=== PATIENT | female | born 1960 | race Caucasian/White ===

== ENCOUNTER 2020-03-29 13:09 | Outpatient (CLI) | payer BC, SELFPAY ==
--- NOTE | 2020-03-29 13:17 | CT_ITS ---
WS: [id number] CT NECK TECHNIQUE: Contrast-enhanced CT of the neck with coronal and sagittal reformatted images. CLINICAL INFORMATION: left neck lymphadenopathy COMPARISON: None. DLP: 1572.[address] scans at [facility] use at least one of these dose optimization techniques: automat ed exposure control; mA and/or kV adjustment per patient size (includes targeted exams where dose is matched to clinical indication); or iterative reconstruction. FINDINGS: Some images are degraded due to dental beam hardening artifact. Parotid glands are normal. Enhancing nodule at the inferior aspect of the left submandibular gland me asuring 1.2 x 0.8 cm. This appears contiguous with the submandibular gland. Right submandibular gland is normal. Normal tongue base. Normal parapharyngeal fat. No evidence of supraglottic or glottic mas s. Normal vallecula and piriform sinuses. Subglottic airway is normal. Lung apices are well aerated. Normal visualized thyroid gland. Partially visualized intracranial contents unremarkable. Mastoid air cells and paranasal sinuses are well aera francesca. . IMPRESSION: 1. 1.2 x 0.8 cm enhancing well-circumscribed nodule or lymph node abutting the inferior aspect of th e submandibular gland. This can be further evaluated with ultrasound. Some images are degraded due to dental beam hardening artifact. 2. No cervical lymphadenopathy. 3. Normal thyroid gland. 4. No evidence of supraglottic or glottic mass. 5. Paranasal sinuses and mastoid air cells are well aerated.
[2020-03-29] MEDS: iohexol 300 mg/mL 100 mL Btl IV (13:31)
== END 2020-03-29 13:10 | disposition home or self-care (01) ==
LOC: RADWPI 13:15
PROVIDERS: PCP Family Medicine; Visit Provider Family Medicine
DX: R59.0 Localized enlarged lymph nodes (principal)
CPT/HCPCS: 70491; Q9967

== ENCOUNTER → 2020-04-06 08:43 | Outpatient (BNVA) | payer BC, SELFPAY | PROVIDERS: PCP Family Medicine; Visit Provider Family Medicine | DX: E78.2 Mixed hyperlipidemia (principal); E03.9 Hypothyroidism, unspecified; Z13.6 Encounter for screening for cardiovascular disorders; Z01.419 Encounter for gynecological examination (general) (routine) without abnormal findings; N63.25 Unspecified lump in the left breast, overlapping quadrants; F41.9 Anxiety disorder, unspecified; F32.9 Major depressive disorder, single episode, unspecified | CPT/HCPCS: 80053; 80061; 84443; 85025; 88175 ==

== ENCOUNTER 2020-04-10 10:56 | Outpatient (CLI) | payer BC, SELFPAY ==
--- NOTE | 2020-04-10 11:00 | US_ITS ---
WS: [id number] ULTRASOUND SOFT TISSUES LEFT neck. HISTORY: LYMPHADENOPATHY NECK - RECENT CT SCAN COMPARISON: Neck CT 03/29/2020 TECHNIQUE: 2-D and color Doppler imaging is submitted. Ultrasound performed of the LEFT submandibular region. This is in the area of interest. There are sev eral small benign-appearing lymph nodes noted. These lymph nodes have normal fatty rosy. No enlargeme nt. Normal ovoid shape. US/US soft tissue head neck [id number] IMPRESSION: No abnormal lymphadenopathy in the LEFT neck.
== END 2020-04-10 10:57 | disposition home or self-care (01) ==
LOC: US 10:59
PROVIDERS: PCP Family Medicine; Visit Provider Family Medicine
DX: R59.0 Localized enlarged lymph nodes (principal)
CPT/HCPCS: 76536

== ENCOUNTER 2020-04-20 08:52 | Outpatient (CLI) | payer BC, SELFPAY ==
--- NOTE | 2020-04-20 09:00 | MM_ITS ---
WS: [id number] DIAGNOSTIC BILATERAL DIGITAL MAMMOGRAM WITH CAD LEFT breast ultrasound, limited HISTORY: BREAST LUMP LEFT BREAST COMPARISON: None available. TECHNIQUE: Bilateral craniocaudad, mediolateral oblique, and mediolateral views are submitted. Spot c ompression LEFT CC. Computer aided detection utilized. Breast composition: The breasts are heterogeneously dense, which may obscure small masses. There is a biopsy clip adjacent one nodule in the upper outer quadrant of the RIGHT breast. No distortion or marrufo spicious calcifications. Triangular marker indicating the palpable area along the 6:00 location of th e LEFT breast is present. No underlying mass or distortion. LEFT breast ultrasound, limited. Ultrasound performed in the area of clinical concern and interest. At 6:00 of the LEFT breast there i s no abnormality identified. No solid or cystic mass. MM/[place] [id number] IMPRESSION: BI-RADS: 0-Incomplete: Need additional imaging evaluation FOLLOW UP: See Report 1. No prior mammograms are available for review at this time. We are attemptin g to locate and retrieve these mammograms and an addendum will be submitted. 2. No abnormality in the LEFT breast at 6:00. LACK OF RADIOGRAPHIC EVIDENCE OF MALIGNANCY SHOULD NOT DELAY BIOPSY IF A CLINIC ALLY SUSPICIOUS MASS IS PRESENT.
--- NOTE | 2020-04-20 10:13 | US_ITS ---
WS: [id number] DIAGNOSTIC BILATERAL DIGITAL MAMMOGRAM WITH CAD LEFT breast ultrasound, limited HISTORY: BREAST LUMP LEFT BREAST COMPARISON: None available. TECHNIQUE: Bilateral craniocaudad, mediolateral oblique, and mediolateral views are submitted. Spot c ompression LEFT CC. Computer aided detection utilized. Breast composition: The breasts are heterogeneously dense, which may obscure small masses. There is a biopsy clip adjacent one nodule in the upper outer quadrant of the RIGHT breast. No distortion or marrufo spicious calcifications. Triangular marker indicating the palpable area along the 6:00 location of th e LEFT breast is present. No underlying mass or distortion. LEFT breast ultrasound, limited. Ultrasound performed in the area of clinical concern and interest. At 6:00 of the LEFT breast there i s no abnormality identified. No solid or cystic mass. US/US breast LT limited* [id number] IMPRESSION: BI-RADS: 0-Incomplete: Need additional imaging evaluation FOLLOW UP: See Report 1. No prior mammograms are available for review at this time. We are attemptin g to locate and retrieve these mammograms and an addendum will be submitted. 2. No abnormality in the LEFT breast at 6:00. LACK OF RADIOGRAPHIC EVIDENCE OF MALIGNANCY SHOULD NOT DELAY BIOPSY IF A CLINIC ALLY SUSPICIOUS MASS IS PRESENT.
== END 2020-04-20 08:53 | disposition home or self-care (01) ==
LOC: RADSHAW 08:53
PROVIDERS: PCP Family Medicine; Visit Provider Family Medicine
DX: N63.25 Unspecified lump in the left breast, overlapping quadrants (principal)
CPT/HCPCS: 76642; 77066

== ENCOUNTER → 2020-07-20 08:28 | Outpatient (BNVA) | payer BC, SELFPAY | PROVIDERS: PCP Family Medicine; Visit Provider Psychiatry & Neurology Psychiatry | DX: F41.1 Generalized anxiety disorder (principal); F33.1 Major depressive disorder, recurrent, moderate | CPT/HCPCS: 99204 ==

== ENCOUNTER → 2020-11-14 11:33 | Outpatient (BNVA) | payer BC, SELFPAY | PROVIDERS: PCP Family Medicine; Visit Provider Family Medicine | DX: R56.9 Unspecified convulsions (principal); E78.2 Mixed hyperlipidemia; E03.9 Hypothyroidism, unspecified | CPT/HCPCS: 80053; 80177; 84439; 84443 ==

== ENCOUNTER → 2020-11-29 09:25 | Outpatient (BNVA) | payer BC, SELFPAY | PROVIDERS: PCP Family Medicine; Visit Provider Family Medicine | DX: R56.9 Unspecified convulsions (principal) | CPT/HCPCS: 80177 ==

== ENCOUNTER → 2021-05-31 09:54 | Outpatient (BNVA) | payer BC, SELFPAY | PROVIDERS: PCP Family Medicine; Visit Provider Family Medicine | DX: E78.2 Mixed hyperlipidemia (principal); E03.9 Hypothyroidism, unspecified; L57.0 Actinic keratosis | CPT/HCPCS: 80053; 80061; 84443; 85025 ==

== ENCOUNTER 2021-06-26 10:00 | Outpatient (CLI) | payer BC, SELFPAY ==
--- NOTE | 2021-06-26 10:06 | MM_ITS ---
WS: [id number] BILATERAL 3D TOMOSYNTHESIS DIGITAL SCREENING MAMMOGRAPHY WITH CAD CLINICAL INFORMATION: screening mammogram HISTORY: RIGHT breast pain and soreness COMPARISON: April 20, 2020 TECHNIQUE: Bilateral CC and MLO views. FINDINGS: Scattered fibroglandular densities bilaterally. Stable biopsy clip RIGHT breast is stable ovoid asymm etry. Lucent centered calcification LEFT breast. No suspicious focal mass, asymmetry, calcifications, or architectural distortion. No evidence of malignancy. MM/[place] [id number] IMPRESSION: BI-RADS: 2-Benign FOLLOW UP: 1 Year Follow-up Recommend return to annual screening mammography.
== END 2021-06-26 10:01 | disposition home or self-care (01) ==
PROVIDERS: PCP Family Medicine; Visit Provider Family Medicine
DX: Z12.31 Encounter for screening mammogram for malignant neoplasm of breast (principal)
CPT/HCPCS: 77063; 77067

== ENCOUNTER → 2021-11-29 10:55 | Outpatient (BNVA) | payer BC, SELFPAY | PROVIDERS: PCP Family Medicine; Visit Provider Family Medicine | DX: E03.9 Hypothyroidism, unspecified (principal) | CPT/HCPCS: 84439; 84443 ==

== ENCOUNTER 2022-03-22 09:41 | Outpatient (CLI) | payer BC, SELFPAY ==
--- NOTE | 2022-03-22 09:58 | ECG_ITS ---
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 Interpretive Statements NAME OF STUDY: LEXISCAN SESTAMIBI STRESS TEST INDICATION: Chest Pain, PROCEDURE: At the baseline, the EKG revealed normal sinus rhythm with a normal ST Ts. The baseline heart was 61 bpm with a blood pressue of 91/57 mm of Hg Lexiscan was infused over a period of 20 seconds. A total of 0.4 milligrams of Lexiscan was infused. The stress phase was continued for a total of 5 minutes. Heart rate at the end of the stress phase was 85 bpm with a blood pressure 93/57 mm of Hg. The EKG at the peak infusion revealed no significant changes. Sestamibi was injected 20 seconds after the Lexiscan infusion. Heart rate at the end of the recovery phase was 76 bpm with a blood pressure of 96/58 mm of Hg. CONCLUSION: 1. No significant EKG changes with the LexiScan infusion 2. No LexiScan induced chest pain or cardiac arrhythmia 3. Normal blood pressure and heart rate response 4. Sestamibi/sestamibi perfusion scan pending; see separate report. Electronically Signed On 04-05-2022 11:19:26 MEDIA DEVELOPER by Luz Elena Varela M.D. [id number]
--- NOTE | 2022-03-22 09:58 | NMCV_ITS ---
NM hema perf SPECT r/s* [id number] Richmond Null Age: 61 Gender: F : 1960 Exam Date: 03/22/2022 10:43 Ordering Phys: Yolis Kumar DO Technologist: MIRNA Carrington Exam Location: [facility] Indications: ATYPICAL CHEST PAIN STRESS TEST Please see separate stress test report in [facility] for full findings IMAGE PROTOCOL Rest/Stress 1 Lexiscan Day Radiopharmaceutical Dose (mCi) Administration Site Administered by Rest: Tc-99m 10.6 IV MIRNA Linton Sestamibi Stress:Tc-99m 32.4 IV MIRNA Linton Sestamibi Rest: 22-Mar-2022 60 Discovery 630 Stress: 22-Mar-2022 30 Discovery 630 0.4mg Lexiscan. Images obtained in supine and prone position. SPECT RESULTS Technical Quality: Excellent Raw Data Analysis: Normal Image Corrections: No attenuation or motion correction applied Summed Stress Score: 0 Summed Rest Score: 0 Summed Difference Score: 0 PERFUSION FINDINGS Fairly uniform myocardial tracer uptake with no significant perfusion abnormalities FUNCTIONAL RESULTS (calculated via Gated SPECT) Stress Image LV EF (%): 91 Stress EDV (mL):68 TID: 0.89 Stress ESV (mL):6 FUNCTIONAL FINDINGS: Segmental wall motion analysis revealing no gross wall motion abnormalities. IMPRESSIONS 1. Myocardial perfusion imaging revealing uniform myocardial tracer uptake with no significant perfusion normalities 2. Normal LV ejection fraction of 91%. 3. LV wall motion analysis revealing no gross wall motion abnormalities. 4. Normal LV volume Low probability for coronary ischemia, based on the above findings Dr Luz Elena Varela MD [facility] (Electronically Signed) Final Date: 22 March 2022 14:24 S
[2022-03-22 10:09] VITALS: BMI 21.1
[2022-03-22] MEDS: regadenoson 0.4 Mg/5 ml Syringe IVP (11:58)
[2022-03-22 11:59] VITALS: BP 102/56; PULSE 76
== END 2022-03-22 09:42 | disposition home or self-care (01) ==
LOC: CDL 09:47
PROVIDERS: PCP Family Medicine; Visit Provider Family Medicine
DX: R07.89 Other chest pain (principal)
CPT/HCPCS: 36415; 78452; 93017; 96374; A9500; J2785

== ENCOUNTER → 2022-05-30 11:20 | Outpatient (BNVA) | payer BC, SELFPAY | PROVIDERS: PCP Family Medicine; Visit Provider Family Medicine | DX: E03.9 Hypothyroidism, unspecified (principal) | CPT/HCPCS: 84439; 84443 ==

== ENCOUNTER → 2022-11-28 11:33 | Outpatient (BNVA) | payer BC, SELFPAY | PROVIDERS: PCP Family Medicine; Visit Provider Family Medicine | DX: E78.2 Mixed hyperlipidemia (principal); E03.9 Hypothyroidism, unspecified | CPT/HCPCS: 80053; 80061; 84443; 85025 ==

== ENCOUNTER 2022-12-12 12:52 | Outpatient (CLI) | payer BC, SELFPAY ==
--- NOTE | 2022-12-12 13:00 | XR_ITS ---
WS: [id number] DEXA (DUAL ENERGY X-RAY ABSORPTIOMETRY) Bone mineral density was performed using a HemoShear machine. HISTORY: post-menopausal COMPARISON: None available. Lumbar spine BMD (L1-L4): 0.951 g/cm2 T score: -1.9 Z score: -0.3 Total hip BMD: Left: 0.823 g/cm2. T score: -1.5 Z score: -0.3 Right: 0.789 g/cm2. T score: -1.7 Z score: -0.5 10 year probability of a major osteoporotic fracture is 10.6%. IMPRESSION: OSTEOPENIA based upon the WHO classification for females.
--- NOTE | 2022-12-12 13:10 | MM_ITS ---
WS: [id number] BILATERAL SCREENING DIGITAL TOMOSYNTHESIS MAMMOGRAM WITH CAD HISTORY: SCREEN COMPARISON: 06/26/2021, 08/09/2016 Bilateral CC and MLO views with tomosynthesis and synthetic mammography submitted. Computer aided det ection analyzed. Breast composition: There are scattered areas of fibroglandular density. No suspicious masses, microc alcifications or architectural distortion. Biopsy clip adjacent to a mass in the upper outer quadrant of the RIGHT breast is stable over multiple years. No new mass or suspicious calcifications. IMPRESSION: MM/[place] [id number] BI-RADS: 2-Benign FOLLOW UP: 1 Year Follow-up
== END 2022-12-12 12:53 | disposition home or self-care (01) ==
PROVIDERS: PCP Family Medicine; Visit Provider Family Medicine
DX: Z78.0 Asymptomatic menopausal state (principal); Z12.31 Encounter for screening mammogram for malignant neoplasm of breast
CPT/HCPCS: 77063; 77067; 77080

== ENCOUNTER 2023-05-29 10:10 | Outpatient (CLI) | payer BC, SELFPAY ==
--- NOTE | 2023-05-29 10:15 | XR_ITS ---
WS: [id number] Chest 2 views, 05/29/2023 Clinical Data: chronic cough Comparison: None. Findings: No nodules, masses or effusions are seen. The heart is normal. The pulmonary vascularity is not increased. No pneumonia or pneumothorax is seen. Impression: Negative chest.
== END 2023-05-29 10:11 | disposition home or self-care (01) ==
LOC: RAD 10:12
PROVIDERS: PCP Family Medicine; Visit Provider Family Medicine
DX: R05.3 Chronic cough (principal); Z01.89 Encounter for other specified special examinations
CPT/HCPCS: 71046; 84439; 84443

== ENCOUNTER 2023-06-02 14:00 | Outpatient (CLI) | payer BC, SELFPAY ==
--- NOTE | 2023-06-02 14:15 | USCV_ITS ---
Null Richmond Age: 63 Gender: F : 1960 Exam Date: 06/02/2023 14:09 Ordering Phys: Yolis Kumar DO Technologist: CT [place] [facility] Indication: ORTHOPENA BP: 115 / 85 HR: 68 Rhythm: Sinus Technical Quality: Adequate MEASUREMENTS (Male / Female) Normal Values 2D ECHO LVOT Diameter 2.1 cm LV Ejection Fraction MOD 2C 47.5 % LV Ejection Fraction 2C AL 47.3 % LA Diameter 2.2 cm Aorta at Sinotubular Diameter 2.6 cm IVC Diameter 1.2 cm M-MODE LA Ao Ratio MM 0.9 AV Cusp Separation MM 1.9 cm DOPPLER AV Peak Velocity 128.0 cm/s LVOT Peak Velocity 82.0 cm/s AV Area Cont Eq vti 2.4 cm squared AV Area Cont Eq pk 2.2 cm squared MV Peak Velocity 88.0 cm/s MV Area PHT 3.5 cm squared Mitral E to A Ratio 1.3 TR Peak Velocity 72.0 cm/s TR Peak Gradient 2.1 mmHg Right Atrial Pressure 3.0 mmHg Pulmonary Artery Systolic Pressu 5.1 mmHg PV Peak Velocity 96.5 cm/s FINDINGS Left Ventricle Normal left ventricular size and systolic function, EF 60% (visual). No gross wall motion abnormalities Right Ventricle The right ventricle is normal in size and function. Right Atrium The right atrium is normal in size. Left Atrium The left atrium is normal in size. Mitral Valve No gross valvular abnormalities Aortic Valve No gross valvular abnormalities Tricuspid Valve Trace tricuspid valve regurgitation. Pulmonic Valve Mild pulmonary valve regurgitation. Pericardium Normal pericardium without effusion. Aorta Normal ascending aorta dimension. IVC Normal inferior vena cava. CONCLUSIONS Normal left ventricular size and systolic function, EF 60% (visual). No gross wall motion abnormalities. Normal cardiac chamber sizes. Mild pulmonary valve regurgitation. Trace tricuspid valve regurgitation. Estimated pulmonary artery peak systolic pressure within normal limits No similar previous studies are available for comparison Dr Luz Elena Varela MD [facility] (Electronically Signed) Final Date: 06 June 2023 19:41 S
== END 2023-06-02 14:01 | disposition home or self-care (01) ==
LOC: RAD 14:00
PROVIDERS: PCP Family Medicine; Visit Provider Family Medicine
DX: I37.1 Nonrheumatic pulmonary valve insufficiency (principal)
CPT/HCPCS: 93306

== ENCOUNTER 2023-07-01 11:07 | Outpatient (CLI) | payer BC, SELFPAY | END 2023-07-01 11:08 | disposition home or self-care (01) | PROVIDERS: PCP Family Medicine; Visit Provider Family Medicine | DX: R05.3 Chronic cough (principal) | CPT/HCPCS: 94010; 94726; 94729 ==

== ENCOUNTER → 2023-12-18 09:32 | Outpatient (BNVA) | payer BC, SELFPAY | PROVIDERS: PCP Family Medicine; Visit Provider Family Medicine | DX: E78.2 Mixed hyperlipidemia (principal); E03.9 Hypothyroidism, unspecified; R56.9 Unspecified convulsions | CPT/HCPCS: 80053; 80061; 84439; 84443; 84481; 85025 ==

== ENCOUNTER 2023-12-26 10:58 | Outpatient (CLI) | payer BC, SELFPAY ==
--- NOTE | 2023-12-26 11:00 | MM_ITS ---
WS: [id number] BILATERAL SCREENING DIGITAL TOMOSYNTHESIS MAMMOGRAM WITH CAD HISTORY: screening for breast cancer COMPARISON: 12/12/2022, 06/26/2021, 04/20/2020 and 08/01/2015 Bilateral CC and MLO views with tomosynthesis and synthetic mammography submitted. Computer aided det ection analyzed. Breast composition: There are scattered areas of fibroglandular density. No suspicious masses, microc alcifications or architectural distortion. Lobulated mass measuring 6 x 8 x 9 mm upper outer quadrant of the RIGHT breast. There is an adjacent biopsy clip. Mass has been present for multiple prior year s and stable. Benign calcification lateral LEFT breast. MM/MM scr BI tomosynthesis [id number] IMPRESSION: BI-RADS: 2 - Benign. FOLLOW UP: 1 Year Follow-up
== END 2023-12-26 10:59 | disposition home or self-care (01) ==
LOC: RAD 10:59
PROVIDERS: PCP Family Medicine; Visit Provider Family Medicine
DX: Z12.31 Encounter for screening mammogram for malignant neoplasm of breast (principal); R92.323 Mammographic fibroglandular density, bilateral breasts; N63.11 Unspecified lump in the right breast, upper outer quadrant; R92.1 Mammographic calcification found on diagnostic imaging of breast
CPT/HCPCS: 77063; 77067

== ENCOUNTER → 2024-01-13 10:51 | Outpatient (BNVA) | payer BC, SELFPAY | PROVIDERS: PCP Family Medicine; Visit Provider Family Medicine | DX: E03.9 Hypothyroidism, unspecified (principal) | CPT/HCPCS: 84439; 84443 ==

== ENCOUNTER 2024-03-23 08:02 | Day surgery (SDC) | payer BC, SELFPAY ==
[2024-03-23 08:21] VITALS: PULSE 76; RESP 16; TEMP 36.1; O2SAT 95
[2024-03-23] MEDS: sodium chloride 0.9% 1,000 ML 30 ML IV (08:35)
--- NOTE | 2024-03-23 08:36 | P.ANESASSM_ITS ---
Pre-Anesthetic Assessment Height/Weight: Height 1.63 m Weight 47.627 kg Temp Pulse Resp Pulse Ox O2 Del Method 97 F L 76 16 95 Room Air 03/23/24 08:21 03/23/24 08:21 03/23/24 08:21 03/23/24 08:21 03/23/24 08:21 Preop Diagnosis: screening Operation Date: 03/23/24 09:00 Proposed Procedures p Colonoscopy 99509, G0121, Z12.11(Not Applicable) - Gavin Kim MD Familial anesthetic complications: none Was Beta Ashleigh taken within 24 hours: N/A Was Clonidine taken within 24 hours: N/A Last intake: Intake Last Liquid Date 03/22/24 Last Liquid Time 20:30 Last Solid Date 03/21/24 Last Solid Time 18:00 Social No alcohol and No tobacco Exam alert, oriented x 3, clear to auscultation bilaterally and regular rate & rhythm Airway Submandibular: within normal limits Cervical ROM: within normal limits Mallampati: Class II Dentition: caps and full History/ROS No significant history except as noted and No significant complaints Pulmonary None reported CV/HEM None reported None reported Hepatic None reported GI None reported Metabolic Thyroid Disease [facility] None reported Neuropsych Seizure Anesthetic Plan ASA status: 2 Anesthesia: MAC Medications/Allergies Home Medications Medication Instructions Recorded Confirmed Last Taken Type xzjvuyh-nlyvyllst-chcu 333 mg-133 3 tab PO DAILY 07/20/20 03/23/24 03/21/24 History mg-5 mg tablet cholecalciferol (vitamin D3) 125 125 mcg PO DAILY 07/20/20 03/23/24 03/21/24 History mcg (5,000 unit) tablet mecobalamin (vitamin B12) 1,000 1,000 mcg PO DAILY 07/20/20 03/23/24 03/21/24 History mcg chewable tablet multivitamin 1 tab PO QAM 07/20/20 03/23/24 03/21/24 History levetiracetam 500 mg tablet 500 mg PO BID 11/14/20 03/23/24 03/22/24 History omega 6-gvl-bgy-fish oil 300 2 cap PO DAILY 12/18/23 03/23/24 03/21/24 History mg-1,000 mg capsule (Fish Oil) levothyroxine 50 mcg tablet 50 mcg PO DAILY #90 tabs 01/21/24 03/23/24 03/22/24 Rx Allergies Allergy/AdvReac Type Severity Reaction Status Date / Time No Known Allergies Allergy Verified 01/01/24 11:45 Current Medications Generic Name Dose Route Start Last Admin Trade Name Dulce PRN Reason Stop Dose Admin Sodium Chloride 1,000 mls @ 30 mls/hr 03/23/24 08:15 03/23/24 08:35 Sodium Chloride 0.9% IV 30 mls/hr .Q24H DAVID Administration PFSH Anesthesia Medical History Hypothyroid labs today; decrease thyroid med from 50 to 25mcg and recheck 6 wks after changing meds Seizures Being managed by neurology at [place]. 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
--- NOTE | 2024-03-23 08:57 | P.HP_ITS ---
Same Day Surgery H&P Indication for Procedure/HPI DATE OF PROCEDURE: March 23, 2024 CHIEF COMPLAINT/INDICATIONFOR SURGICAL PROCEDURE: screening colonoscopy PREOP DIAGNOSIS: screening colonoscopy PLANNED PROCEDURE: Operation Date: 03/23/24 09:00 Proposed Procedures p Colonoscopy 17154, G0121, Z12.11(Not Applicable) - Gvain Kim MD Medications/Allergies* Home Medications Medication Instructions Recorded Confirmed Type yhoawzx-nroiniyen-reti 333 mg-133 3 tab PO DAILY 07/20/20 03/23/24 History mg-5 mg tablet cholecalciferol (vitamin D3) 125 125 mcg PO DAILY 07/20/20 03/23/24 History mcg (5,000 unit) tablet mecobalamin (vitamin B12) 1,000 1,000 mcg PO DAILY 07/20/20 03/23/24 History mcg chewable tablet multivitamin 1 tab PO QAM 07/20/20 03/23/24 History levetiracetam 500 mg tablet 500 mg PO BID 11/14/20 03/23/24 History omega 6-wtz-cea-fish oil 300 2 cap PO DAILY 12/18/23 03/23/24 History mg-1,000 mg capsule (Fish Oil) Allergies/Adverse Reactions Allergy/AdvReac Type Severity Reaction Status Date / Time No Known Allergies Allergy Verified 01/01/24 11:45 Current Medications: Generic Name Dose Route Start Last Admin Trade Name Freq PRN Reason Stop Dose Admin Sodium Chloride 1,000 mls @ 30 mls/hr 03/23/24 08:15 03/23/24 08:35 Sodium Chloride 0.9% IV 30 mls/hr .Q24H DAVID Administration Pertinent History/Comorbid Conditions* Medical History (Updated 12/18/23 @ 09:39 by Bree Montilla MD) Hypothyroid labs today; decrease thyroid med from 50 to 25mcg and recheck 6 wks after changing meds Seizures Being managed by neurology at [place]. 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
[2024-03-23 09:25] VITALS: BP 87/57; PULSE 71; RESP 16; TEMP 36.4; O2SAT 97
[2024-03-23 09:38] VITALS: BP 97/69; PULSE 65; RESP 16; O2SAT 96
--- NOTE | 2024-03-23 09:44 | ANE.PACU2 ---
Inpatient post-anesthesia follow up: Airway intact: Yes Vital signs: Temperature 97.6 F Pulse Rate 65 Respiratory Rate 16 Blood Pressure 97/69 Pulse Oximetry 96 Oxygen Delivery Me thod Room Air Oxygen Flow Rate Fraction of Inspir ed Oxygen Hydration adequate: Yes Nausea and vomiting: No Pain level: 1 Mental status: Baseline
== END 2024-03-23 09:54 | disposition home or self-care (01) ==
PROVIDERS: PCP Family Medicine; Visit Provider Student in an Organized Health Care Education/Training Program
PROC: 0DJD8ZZ Inspection of Lower Intestinal Tract, Via Natural or Artificial Opening Endoscopic (ICD-10-PCS; CPT 45378; principal; 2024-03-23 09:00)
DX: Z12.11 Encounter for screening for malignant neoplasm of colon (principal); D12.8 Benign neoplasm of rectum; K62.89 Other specified diseases of anus and rectum; E03.9 Hypothyroidism, unspecified; E78.5 Hyperlipidemia, unspecified; F32.A Depression, unspecified; F41.9 Anxiety disorder, unspecified
CPT/HCPCS: 45380; 88305; J2704; J7030

== ENCOUNTER → 2024-06-15 10:20 | Outpatient (BNVA) | payer BC, SELFPAY | PROVIDERS: PCP Family Medicine; Visit Provider Family Medicine | DX: E03.9 Hypothyroidism, unspecified (principal) | CPT/HCPCS: 84439; 84443; 84481 ==

== ENCOUNTER → 2024-12-27 10:02 | Outpatient (BNVA) | payer BC, SELFPAY | PROVIDERS: PCP Family Medicine; Visit Provider Family Medicine | DX: Z00.00 Encounter for general adult medical examination without abnormal findings (principal); Z12.4 Encounter for screening for malignant neoplasm of cervix | CPT/HCPCS: 80053; 80061; 84443; 85025; 87624 ==

== ENCOUNTER 2025-01-05 10:32 | Outpatient (CLI) | payer BC, SELFPAY ==
--- NOTE | 2025-01-05 10:40 | MM_ITS ---
WS: [id number] BILATERAL SCREENING DIGITAL TOMOSYNTHESIS MAMMOGRAM WITH CAD HISTORY: screening COMPARISON: 12/26/2023, 12/12/2022, 06/26/2021 Bilateral CC and MLO views with tomosynthesis and synthetic mammography submitted. Computer aided detection analyzed. Breast composition: There are scattered areas of fibroglandular density. No suspicious masses, microcalcifications or architectural distortion. Biopsy clip upper outer quadrant RIGHT breast. Benign calcification in the lateral LEFT breast. No suspicious grouping of calcifications. MM/MM scr BI tomosynthesis [id number] IMPRESSION: BI-RADS: 2 - Benign. FOLLOW UP: 1 Year Follow-up
== END 2025-01-05 10:33 | disposition home or self-care (01) ==
LOC: RAD 10:34
PROVIDERS: PCP Family Medicine; Visit Provider Family Medicine
DX: Z12.31 Encounter for screening mammogram for malignant neoplasm of breast (principal); R92.323 Mammographic fibroglandular density, bilateral breasts; Z96.89 Presence of other specified functional implants; R92.1 Mammographic calcification found on diagnostic imaging of breast
CPT/HCPCS: 77063; 77067